=== PATIENT | female | born 1990 | race Caucasian/White ===

== ENCOUNTER 2016-09-02 05:54 | Inpatient (IN) | payer OTHER ==
[~2016-09-02] VITALS: Ht 175.3 cm; Wt 103.0 kg
[2016-09-02] MEDS ORDERED: Oxytocin 10 Unit/mL Inj IM PRN (06:35)
[2016-09-02] MEDS ORDERED: Sodium Chloride LOK Flush 10 mL Syringe IVFLUSH PRN (06:35)
[2016-09-02] MEDS ORDERED: Methylergonovine 0.2 mg/mL Inj IM PRN (06:35)
[2016-09-02] MEDS ORDERED: Oxytocin 30 Units/500 mL LR 30 UNITS in IV Premix 1 EACH IV PRN ×2 (06:35→11:00)
[2016-09-02] MEDS ORDERED: Ondansetron 2 mg/mL 2 mL Inj IVPUSH PRN ×2 (06:35→14:25)
[2016-09-02] MEDS ORDERED: Penicillin G K Inj 5,000,000 UNITS in Dextrose 5% Minibag Plus 100 ML IV ONE (06:35)
[2016-09-02] MEDS ORDERED: Hemorrhage Kit, Post Partum XX ONE (06:35)
[2016-09-02] MEDS ORDERED: fentaNYL-PF 50 mCg/mL 2 mL Inj IVPUSH PRN (06:35)
[2016-09-02] MEDS ORDERED: Carboprost 250 mCg/mL Inj IM PRN (06:35)
[2016-09-02] MEDS: Lactated Ringer's 1,000 ML IV PRN ×3 (07:39→13:33)
[2016-09-02 07:51] LABS: Mean Corpuscular Volume 88.2 fL (81-100)
[2016-09-02] MEDS: Penicillin G K Inj 3,000,000 UNITS in IV Premix 1 EACH IV SCH ×2 (12:02→16:37)
[2016-09-02] MEDS ORDERED: Lactated Ringer's 500 ML IV ONE (14:21)
[2016-09-02] MEDS ORDERED: Lactated Ringer's 1,000 ML IV SCH (14:21)
[2016-09-02] MEDS ORDERED: Atropine 1 mg/10 mL (Code) Syringe IVPUSH PRN (14:25)
[2016-09-02] MEDS ORDERED: EPHEDrine Sulfate 50 mg/mL Inj IVPUSH PRN (14:25)
[2016-09-02] MEDS ORDERED: fentaNYL 2 mCg/mL-Bupiv 0.125% 100 ML EPIDURAL SCH (14:25)
--- NOTE | 2016-09-02 15:03 | PCM.HPANE ---
Patient Data Surgeon Admitting Provider:Kyle Mcknight MD Attending Provider:Kyle Mcknight MD Primary Care Physician:Kyle Mcknight MD Other Provider:Mary Mar Anesthesia Reason for Visit Term Labor TERM LABOR Ht/WT & BMI Body Mass Index Allergies Coded Allergies: No Known Allergies (Unverified , 09/02/16) Diabetes History Hx Diabetes?: No MRSA MRSA: No History History of ENT Problems?: No Hx of Heart Problems?: No Hx of Respiratory Problem?: No Hx Neurologic Problems?: No Gastrointestinal History: Positive for:: Gastroesphageal Reflux Hx of Problems?: No Female Hx: Positive for:: Currently Other History/Comment at term uncomplicated , 8 cm Hx Musculoskeletal Problems?: No Hx of Psycho/Social Problems?: No Hx Surgeries?: No Hx Any Other Health Problems?: No Hx Alcohol Use: NoHx Substance Use: No Smoking Status: Never Smoker Have You Smoked inLast 12 mo: No Stop/Bang Risk Assessment Category Category 1A: Patient has history of documented sleep apnea, and HAS NOT received any narcotic, sedative or anesthesia administration during this stay. Category 1B: Patient has history of documented sleep apnea, and HAS received any narcotic , sedative or anesthesia administration during this stay Category 2: Patient has SUSPECTED Obstructive Sleep Apnea, and HAS received any narcotic , sedative or anesthesia administration during this stay. Category 3: Patient has SUSPECTED Obstructive Sleep Apnea and HAS NOT received narcotic, sedative or anesthesia administration during this stay. Category 4: Outpatient in Procedural Areas with known sleep apnea or who screen positive for High Risk via the STOP/BANG questionnaire. Exam Exam General Appearance: Alert, Oriented X3, Moderate Distress HEENT/AIRWAY: MP 2 Lungs: Clear to Auscultation Heart: Exam Unremarkable (history and physical done prior to placing the epidural, documented after) Meds/Labs/Diagnostics Admission Meds Current Medications Penicillin G Potassium 0146112 units/Dextrose/ Water 100 ml @ 240 mls/hr ONCE ONCE IV Last administered on 09/02/16 07:51; Start 09/02/16 at 06:35; Stop at 06:59; Status DC Penicillin G Potassium/ Dextrose/Premix (Pfizerpen Inj/ IV Premix) 50 ml @ 100 mls/hr Q4 IV Last administered on 09/02/16 12:02; Start 09/02/16 at 12:30 Labs Test 09/02/16 07:25 White Blood Count 18.9th/mm3 (3.8-10.1) Red Blood Count 4.17mil/mm3 (3.90-5.20) Hemoglobin 12.1g/dL (12.0-15.6) Hematocrit 36.8% (35.0-46.0) Mean Corpuscular Volume 88.2fL (81-100) Mean Corpuscular Hemoglobin 29.0pg (27.0-35.0) Mean Corpuscular Hemoglobin Concent 32.9% (32.0-37.0) Red Cell Distribution Width 13.8% (12.3-15.4) Platelet Count 338bil/L (150-400) Plan Impression Patient chart reviewed, patient interviewed and anesthestic plan with risks, benefits, and alternatives discussed, and informed consent obtained. Gurmeet Jane MD Sep 02, 2016 15:02
--- NOTE | 2016-09-02 15:04 | PCM.ANEP1 ---
Post Anesthesia Phase 1 PACU Phase 1 Assessment Anesthetic Administered: Epidural Level of Alertness: Awake, talking TREJO's with Equal Strength: No Pain: Yes Pain Scale Score: 7 Nausea or Vomiting: No Oxygen Delivery: Room Air Lungs: Clear to Auscultation Dermatome Level: T6 (Xyphoid Process) Summary no complications, good pain relief Gurmeet Jane MD Sep 02, 2016 15:04
[2016-09-02] MEDS ORDERED: Sodium Chloride LOK Flush 10 mL Syringe IVFLUSH SCH (16:30)
[2016-09-02] MEDS ORDERED: Benzocaine (Dermoplast) 20% 60 Gm Spray TOPICAL PRN (23:20)
[2016-09-02] MEDS ORDERED: LANOlin HPA 7 Gm Ointment TOPICAL PRN (23:20)
[2016-09-02] MEDS ORDERED: Witch Hazel-Glycerin Pads TOPICAL PRN (23:20)
--- NOTE | 2016-09-03 00:45 | OP ---
[address] [address] OPERATIVE REPORT PATIENT: JOJO STROUD : 1990 MR#: [id number] ADMIT: 09/02/2016 JOB ID: [id number] DATE OF SURGERY: 09/02/2016 SURGEON: PREOPERATIVE DIAGNOSIS(ES): POSTOPERATIVE DIAGNOSIS(ES): [facility] NOTE: The patient was admitted to [facility] this morning in labor, anticipating of her first child. She was admitted at 5 cm dilatation, gradually progressing to 6 cm and then 7 cm, although with somewhat spaced contractions, ultimately leading to Pitocin augmentation. Artificial rupture of membranes was undertaken in time, and clear fluid recovered. Patient finally requested fentanyl and then epidural, which was provided for pain management. Note that heart tracing was typically acceptable, note the heart rate deceleration lasted a few minutes early following admission, yet then without recurrence of anything similar. She also did have variable decelerations in second stage of labor, leading to oxygen administration and careful monitoring of heart tracing that did demonstrate appropriate heart rate response to scalp stimulation. Once completely dilated, patient learned to push very well. Head came down to position and then delivered, in a right occiput posterior position. This was followed by reduction of moderately loose nuchal cord easily over the head and then ready delivery of the shoulders, body and extremities. Baby was active, crying and vigorous; and thus, handed to mother for bonding and further nurse management. Baby was well stimulated, dried and cried. After one minute of delay, umbilical cord was clamped and cut, and cord blood was obtained for routine studies. Placenta with membranes then spontaneously expelled, intact. Blood loss from the uterus was in the 150 cc range. Uterus contracted well with massage plus intravenous Pitocin infusion. Betadine solution was used to cleanse the vulvovaginal region. There were no lacerations except for midline moderately sized perineal laceration easily repaired with 2-0 chromic suture in deep and then more superficial layers. Hemostasis noted to be complete and there were no ongoing lacerations, bleeding or hematoma formation. Instrument, needle and sponge counts were all found to be correct. It certainly is anticipated that mother and baby will do very well during the timeframe. Note that penicillin G was provided during labor as antibiotic prophylaxis in the setting of group B strep test positive. MTDD
[2016-09-03] MEDS ORDERED: Lactated Ringer's 1,000 ML IV SCH (02:33)
[2016-09-03] MEDS ORDERED: HYDROcodone-APAP 5-325 mg Tablet PO PRN (02:35)
[2016-09-03] MEDS ORDERED: TdaP Vaccine 0.5 mL Inj IM ONE (02:35)
[2016-09-03] MEDS ORDERED: Witch Hazel-Glycerin Pads TOPICAL PRN (02:35)
[2016-09-03] MEDS ORDERED: Oxytocin 10 Unit/mL Inj IM PRN (02:35)
[2016-09-03] MEDS ORDERED: Carboprost 250 mCg/mL Inj IM PRN (02:35)
[2016-09-03] MEDS ORDERED: LANOlin HPA 7 Gm Ointment TOPICAL PRN (02:35)
[2016-09-03] MEDS ORDERED: Hemorrhage Kit, Post Partum XX ONE (02:35)
[2016-09-03] MEDS ORDERED: Methylergonovine 0.2 mg/mL Inj IM PRN (02:35)
[2016-09-03] MEDS ORDERED: Influenza (Adult) Vaccine 0.5 mL Syringe IM ONE (02:35)
[2016-09-03] MEDS ORDERED: Measles-Mumps-Rubella Vaccine 0.5 mL Inj SUBQ ONE (02:35)
[2016-09-03] MEDS ORDERED: Benzocaine (Dermoplast) 20% 60 Gm Spray TOPICAL PRN (02:35)
[2016-09-03] MEDS ORDERED: Oxytocin 30 Units/500 mL LR 30 UNITS in IV Premix 1 EACH IV PRN (02:35)
--- NOTE | 2016-09-03 07:47 | PCM.DIOB ---
Obstetrical Disch Instruction Dates of Hospitalization Date of Hospital Admission Sep 02, 2016 at 06:24 Providers Admitting Physician: Kyle Mcknight MD Primary Care Physician: Kyle Mcknight MD Attending Physician: Kyle Mcknight MD Discharge Diagnosis Problems: (1) Status: Acute ICD Code: Z33.1 Diet Discharge Diet: No restrictions Activity Discharge Activity-General: Pelvic Rest for 6 weeks Dressing and Incisional Care Hygiene: May shower, Perineal care, Sitz bath, Dermoplast spray, Witch Gemini pads, Ice Follow Up Plan Follow-up appointment: Weeks (Follow up in 6 weeks for check up.) Call your provider for: Fever or Chills, Shortness of breath, Heavy vaginal bleeding, Red painful breasts Kyle Mcknight MD Sep 03, 2016 07:47
[2016-09-03] MEDS ORDERED: DOCU-41 PO (07:49)
[2016-09-03] MEDS ORDERED: IBUP-1827 PO (07:49)
[2016-09-03 12:06] VITALS: BP 124/56; PULSE 83; RESP 16
--- NOTE | 2016-10-07 12:21 | DIS ---
[address] [address] DISCHARGE SUMMARY PATIENT: JOJO STROUD : 1990 MR#: [id number] ADMIT: 09/02/2016 JOB ID: [id number] DIS: 09/03/2016 DISCHARGE DIAGNOSES: 1. Term , delivered. 2. Labor. 3. Positive group B streptococcus status. PROCEDURES PERFORMED DURING HOSPITALIZATION: 1. Vaginal delivery. 2. Repair of perineal laceration. 3. Pitocin augmentation of labor. 4. Fentanyl and then epidural anesthesia. 5. Intravenous antibiotic administration in setting of group B streptococcus test positivity. HOSPITAL COURSE: Patient admitted to [facility] at term in active labor. She ultimately underwent procedures as described. During the timeframe, the patient did well, with stable vitals, afebrile, with reasonable bleeding and pain management, ambulating and voiding, without leg pain or shortness of breath, and handling baby well. , the patient was interested in going home on the first day, and her request was granted. DISCHARGE PROGRAM: Patient will call p.r.n., otherwise she will observe pelvic rest for six weeks, and she will schedule appointment for followup with Dr. Mcknight at [facility] in six weeks. She has been given prescriptions for ibuprofen and Colace, and she will continue to use vitamin daily at home while nursing.
--- NOTE | 2016-10-18 09:41 | HP ---
[address] [address] HISTORY AND PHYSICAL PATIENT: JOJO STROUD : 1990 MR#: [id number] ADMIT: 09/02/2016 JOB ID: [id number] [facility] NOTE DATE: 09/02/2016 HISTORY OF PRESENT ILLNESS: The patient is a 26-year-old, G1, P0, AB0 woman followed prenatally at [facility], see record for details. course has been relatively uncomplicated. Note, recent positive group B strep test, rubella immune status, Rh positive status, up to date with Tdap and flu vaccination--both received during , and note 59 pounds weight gain during . The patient was admitted to [facility] on the morning of September 02, 2016, in labor. PHYSICAL EXAMINATION: On admission, last height, weight, and blood pressure in the office--5 foot 8, 225 pounds, 124/66. Neck no thyromegaly. Lungs are auscultation and percussion. Heart regular in rate and rhythm. Abdomen nontender. Fundal height 38.5 cm at last check. Positive heartbeat. Vertex presentation. Pelvic examination cervix on admission 5 cm dilated, and bag of water intact on admission. LABORATORY DATA: Admission hemoglobin 12.1, platelets 338. IMPRESSION: 1. A 39 and 4/7 weeks of gestation. 2. Active labor. 3. Positive group B strep status, for antibiotic prophylaxis in labor. 4. Rh positive status. 5. Rubella immune status. 6. Up to date with Tdap and flu vaccination, both received in July 2016. 7. Increased weight gain in (close to 60 pounds). 8. Increased weight. 9. See record for additional diagnoses. PLAN: This patient admitted to [facility] at term in labor, anticipating vaginal .
== END 2016-09-03 12:25 | disposition home or self-care (01) | DRG 775 ==
LOC: FBCO 05:54 → FBC 06:24
PROVIDERS: ADMIT Obstetrics & Gynecology; ATTEND Obstetrics & Gynecology
PROC: 0KQM0ZZ Repair Perineum Muscle, Open Approach (ICD-10-PCS; principal; 2016-09-02)
PROC: 10E0XZZ Delivery of Products of Conception, External Approach (ICD-10-PCS; 2016-09-02)
PROC: 10H073Z Insertion of Monitoring Electrode into Products of Conception, Via Natural or Artificial Opening (ICD-10-PCS; 2016-09-02)
PROC: 10907ZC Drainage of Amniotic Fluid, Therapeutic from Products of Conception, Via Natural or Artificial Opening (ICD-10-PCS; 2016-09-02)
DX: O69.81X0 Labor and delivery complicated by cord around neck, without compression, not applicable or unspecified (principal); Z37.0 Single live birth; O70.1 Second degree perineal laceration during delivery; Z3A.39 39 weeks gestation of pregnancy